=== PATIENT | male | born 1950 | race Hispanic/Latino ===

== ENCOUNTER 2018-07-09 07:26 | Day surgery (SDC) | payer BC, OTHER ==
[2018-07-03 12:37] VITALS: BMI 24.4
[2018-07-09 08:11] VITALS: RESP 18
[2018-07-09] MEDS ORDERED: EPINEPHrine 1 mg/ml (1:1000) Inj ONE (09:22)
[2018-07-09] MEDS ORDERED: Lidocaine 2% MPF (5 ml) Inj ONE (09:22)
[2018-07-09] MEDS ORDERED: Midazolam 2 MG/2 ML VIAL ONE (09:49)
[2018-07-09] MEDS ORDERED: Propofol 10 mg/ml Inj (20 ML) ONE (09:50)
[2018-07-09] MEDS ORDERED: Albuterol-Ipratrop 3 mg / 0.5 (3 ml) UD INH STA (10:11)
--- NOTE | 2018-07-09 10:11 | PCM.SURG1 ---
Surgeon's Initial Post Op Note - Surgeon's Notes Surgeon: dave Track Maintainer: none Pre-Operative Diagnosis: brochial lesion Operative Findings: mild generalised erythema of the tracheobronchial tree mostly over the left side Post-Operative Diagnosis: chronic bronchitis, mucosal thickening Operation Performed: diagnositic brochoscopy Specimen/Specimens Removed: bal Estimated Blood Loss: EBL {In ML}: 0 Date of Surgery/Procedure: 07/09/18 Time of Surgery/Procedure: 10:11
[2018-07-09] MEDS ORDERED: Sodium Chloride 0.9% 1,000 ML IV SCH (10:15)
--- NOTE | 2018-07-09 10:41 | RAD ---
Date of service: 07/09/2018 HISTORY: post bronch COMPARISON: No prior. FINDINGS: LUNGS: No active pulmonary disease. PLEURA: No significant pleural effusion identified, no pneumothorax apparent. CARDIOVASCULAR: No aortic atherosclerotic calcification present. Normal cardiac size. No pulmonary vascular congestion. OSSEOUS STRUCTURES: No significant abnormalities. VISUALIZED UPPER ABDOMEN: Normal. OTHER FINDINGS: None. IMPRESSION: No active disease.
[2018-07-09 11:37] VITALS: TEMP 97.5
[2018-07-09 12:13] VITALS: BP 115/71; PULSE 85; O2SAT 97
--- NOTE | 2018-07-10 11:35 | OP ---
PROCEDURE DATE: 07/09/2018 PROCEDURE: Diagnostic bronchoscopy and evaluation of the tracheobronchial tree. CONSENT: Informed consent from the patient. SEDATION: Conscious sedation. DESCRIPTION OF PROCEDURE: The patient was brought into the endoscopy suite. The oral airway as well as nasal passage was prepared under topical anesthetic. The patient was prepared with conscious sedation. The right nostril was introduced through the bronchoscopy. The patient had a thick epiglottis. Vocal cords were visualized very pliable and was moving very well. There was no lesion noted upon entering into the trachea. There was a thick mucus noted in the upper part of the tracheal area, which was removed and there was no underlying lesion noted, but the trachea was slightly curved to the right side. Upon entering into the left bronchial tree, there was some mucosal erythema noted and also some leukoplakic changes noted similar on the right side but much less on the left side. Saline was introduced and collection was done from the left upper lung tracheobronchial tree and also BAL was collected from that area. Specimen was collected. There was no bleeding noted. There were slight erythematous changes after the bronchoscopy. Upon taking out the bronchoscopy, there were no lesions identified, but there was a significant amount of thick mucus identified. Specimens were taken and sent for cytology, microbiology as well as pathology. The patient tolerated the procedure well. The patient will be monitored at least for 3 hours and he will be discharged after that. Tierra Hoover MD
== END 2018-07-09 12:00 | disposition home or self-care (01) ==
LOC: EDBD → C.SDS 07:26
PROVIDERS: ATTEND Internal Medicine
DX: J42 Unspecified chronic bronchitis (principal)